=== PATIENT | female | born 1995 | race African-American/Black ===

== ENCOUNTER 2020-10-21 22:58 | Day surgery (SDC) | payer OTHER ==
[2020-10-22] MEDS ORDERED: hydrALAZINE 20 MG/ML VIAL SLOW IVP PRN (00:50)
[2020-10-22 03:06] LABS: Amnisure Test No Membranes Rupture (No Rupture)
[2020-10-22] MEDS ORDERED: Promethazine HCl 25 MG/ML VIAL IM SCH (03:30)
[2020-10-22] MEDS ORDERED: Morphine 4 MG/ML VIAL IM SCH (03:30)
[2020-10-22] MEDS ORDERED: Acetaminophen 500 MG TAB PO SCH (03:45)
== END 2020-10-22 03:45 | disposition home health service (06) ==
LOC: CSHLD/OP 22:58
PROVIDERS: ATTEND Family Medicine
DX: O47.1 False labor at or after 37 completed weeks of gestation (principal); O99.513 Diseases of the respiratory system complicating pregnancy, third trimester; J45.909 Unspecified asthma, uncomplicated; O99.333 Smoking (tobacco) complicating pregnancy, third trimester; F17.210 Nicotine dependence, cigarettes, uncomplicated; O09.33 Supervision of pregnancy with insufficient antenatal care, third trimester; Z3A.39 39 weeks gestation of pregnancy; Z59.0 Homelessness
CPT/HCPCS: 84112

== ENCOUNTER 2021-01-18 14:55 | Emergency (ER) | payer OTHER, MEDICAID ==
[2021-01-18 17:50] LABS: Bilirubin Neg (Negative); Blood, Urine 10 (Negative); Clarity Clear (Clear); Glucose, Urine (Dipstick) Normal (Negative); Ketone, Urine Negative (Negative); Leukocyte 25 (Negative); Nitrite Negative (Negative); Protein, Urine (Dipstick) Negative (Neg-Trace)
[2021-01-18 17:53] LABS: Pregnancy Test - Urine (BHCG) Negative (Negative)
[2021-01-18 17:54] LABS: Pregu Control Background? CLEAR/WHITE (CLR/WHITE); Pregu Control Bar Appear? YES (CONTROL BAR)
[2021-01-18 18:02] LABS: Bacteria/HPF Rare-Few HPF (None Seen); RBC/HPF 0-3 HPF (0-3); WBC/HPF 0-3 HPF (0-3)
== END 2021-01-18 18:34 | disposition home or self-care (01) ==
LOC: CSHERS 14:55
DX: N76.0 Acute vaginitis (principal); B96.89 Other specified bacterial agents as the cause of diseases classified elsewhere; J45.909 Unspecified asthma, uncomplicated; F17.210 Nicotine dependence, cigarettes, uncomplicated
CPT/HCPCS: 81003; 81015; 81025; 87480; 87510; 87660; 99283

== ENCOUNTER 2021-04-04 20:27 | Emergency (ER) | payer OTHER ==
[2021-04-04 21:27] LABS: Bilirubin Neg (Negative); Blood, Urine 10 (Negative); Clarity Clear (Clear); Glucose, Urine (Dipstick) Normal (Negative); Ketone, Urine Negative (Negative); Leukocyte 500 (Negative); Nitrite Negative (Negative); Protein, Urine (Dipstick) 15 mg/dl (Neg-Trace); Specific Gravity, Urine 1.025 (1.002-1.036); Urobilinogen Normal mg/dL (Less than 2)
[2021-04-04 21:29] LABS: Pregnancy Test - Urine (BHCG) Negative (Negative); Pregu Control Background? CLEAR/WHITE (CLR/WHITE); Pregu Control Bar Appear? YES (CONTROL BAR); Specific Gravity 1.025 (1.002-1.036)
[2021-04-04 21:47] LABS: RBC/HPF 0-3 HPF (0-3)
[2021-04-04 21:48] LABS: Bacteria/HPF 1+ HPF (None Seen); Mucous/LPF Few LPF (<2+)
[2021-04-04] MEDS ORDERED: Fluconazole 100 MG TAB PO SCH (22:00)
[2021-04-04] MEDS ORDERED: cefTRIAXone\\ROCEPHIN 1 GM VIAL ONE (22:30)
[2021-04-04] MEDS ORDERED: Sterile Water 10 ML ONE (22:30)
[2021-04-04] MEDS ORDERED: Doxycycline 100 MG CAP PO SCH (23:15)
[2021-04-06 21:24] LABS: Chlamydia by PCR Not Detected (NotDetected); GC by PCR Not Detected (NotDetected)
== END 2021-04-04 23:16 | disposition home or self-care (01) ==
LOC: CSHERS 20:27
DX: N76.0 Acute vaginitis (principal); N39.0 Urinary tract infection, site not specified
CPT/HCPCS: 81003; 81015; 81025; 87086; 87480; 87491; 87510; 87591; 87660; 96372; 99283; J0696

== ENCOUNTER 2021-04-19 23:57 | Emergency (ER) | payer OTHER ==
[2021-04-20] MEDS ORDERED: cefTRIAXone\\ROCEPHIN 500 MG VIAL ONE (00:24)
[2021-04-20] MEDS ORDERED: Lidocaine 1% MPF 2 ML VIAL ONE (00:24)
[2021-04-20] MEDS ORDERED: Azithromycin 250 MG TAB ONE (00:25)
[2021-04-20 01:01] LABS: Bilirubin Neg (Negative); Blood, Urine 10 (Negative); Clarity Slightly Cloudy (Clear); Glucose, Urine (Dipstick) Normal (Negative); Ketone, Urine Negative (Negative); Leukocyte 100 (Negative); Nitrite Negative (Negative); Protein, Urine (Dipstick) Negative (Neg-Trace); Specific Gravity, Urine 1.025 (1.002-1.036); Urobilinogen Normal mg/dL (Less than 2)
[2021-04-20 01:06] LABS: Pregnancy Test - Urine (BHCG) Negative (Negative); Pregu Control Background? CLEAR/WHITE (CLR/WHITE); Pregu Control Bar Appear? YES (CONTROL BAR); Specific Gravity 1.025 (1.002-1.036)
[2021-04-20 01:11] LABS: Bacteria/HPF 2+ HPF (None Seen); Mucous/LPF 3+ LPF (<2+); RBC/HPF 0-3 HPF (0-3); WBC/HPF 0-3 HPF (0-3)
[2021-04-22 20:40] LABS: Chlam.trachomatis by PCR,Urine Not Detected (NotDetected)
== END 2021-04-20 01:23 | disposition home or self-care (01) ==
LOC: CSHERS 23:57
DX: N76.0 Acute vaginitis (principal); B96.89 Other specified bacterial agents as the cause of diseases classified elsewhere; F17.210 Nicotine dependence, cigarettes, uncomplicated
CPT/HCPCS: 81003; 81015; 81025; 87480; 87491; 87510; 87591; 87660; 96372; 99283; J0696

== ENCOUNTER 2021-04-26 21:07 | Emergency (ER) | payer OTHER | END 2021-04-26 21:38 | disposition home or self-care (01) | LOC: CSHERS 21:07 | DX: N89.8 Other specified noninflammatory disorders of vagina (principal); F17.210 Nicotine dependence, cigarettes, uncomplicated | CPT/HCPCS: 99281 ==

== ENCOUNTER 2021-04-29 08:11 | Emergency (ER) | payer OTHER ==
[2021-04-29] MEDS ORDERED: Acetaminophen 325 MG TAB ONE (08:53)
[2021-04-29] MEDS ORDERED: Ketorolac Tromethamine 30 MG/ML VIAL ONE (08:53)
== END 2021-04-29 09:00 | disposition home or self-care (01) ==
LOC: CSHERS 08:11
DX: R51.9 Headache, unspecified (principal); F17.210 Nicotine dependence, cigarettes, uncomplicated
CPT/HCPCS: 96372; 99284; J1885

== ENCOUNTER 2021-05-03 20:37 | Emergency (ER) | payer OTHER | END 2021-05-03 21:35 | disposition home or self-care (01) | LOC: CSHERS 20:37 | DX: M25.531 Pain in right wrist (principal); F17.210 Nicotine dependence, cigarettes, uncomplicated | CPT/HCPCS: 99281 ==

== ENCOUNTER 2021-05-10 20:21 | Emergency (ER) | payer OTHER ==
[2021-05-16 02:56] LABS: Chlamydia by PCR Not Detected (NotDetected); GC by PCR Not Detected (NotDetected)
== END 2021-05-10 23:28 | disposition home or self-care (01) ==
LOC: CSHERS 20:21
DX: N89.8 Other specified noninflammatory disorders of vagina (principal); F17.210 Nicotine dependence, cigarettes, uncomplicated
CPT/HCPCS: 87480; 87491; 87510; 87591; 87660; 99283

== ENCOUNTER 2021-05-12 20:47 | Emergency (ER) | payer OTHER ==
[2021-05-12] MEDS ORDERED: Acetaminophen 500 MG TAB ONE (21:57)
== END 2021-05-12 22:06 | disposition home or self-care (01) ==
LOC: CSHERS 20:47
DX: R42 Dizziness and giddiness (principal); F17.210 Nicotine dependence, cigarettes, uncomplicated
CPT/HCPCS: 99281

== ENCOUNTER 2022-03-28 18:27 | Emergency (ER) | payer SELFPAY ==
[2022-03-28 19:05] LABS: Bilirubin Neg (Negative); Blood, Urine 10 (Negative); Glucose, Urine (Dipstick) Normal (Negative); Ketone, Urine Negative (Negative); Leukocyte 100 (Negative); Nitrite Negative (Negative); Protein, Urine (Dipstick) Negative (Neg-Trace); Urobilinogen Normal mg/dL (Less than 2)
[2022-03-28 19:12] LABS: Clarity Hazy (Clear)
[2022-03-28 22:28] LABS: Pregnancy Test - Urine (BHCG) Negative (Negative); Pregu Control Background? CLEAR/WHITE (CLR/WHITE); Pregu Control Bar Appear? YES (CONTROL BAR)
[2022-03-29 10:26] LABS: Chlamydia by PCR Not Detected (NotDetected); GC by PCR Not Detected (NotDetected)
== END 2022-03-28 21:49 | disposition left against medical advice (07) ==
LOC: CSHERS 18:27
DX: N89.8 Other specified noninflammatory disorders of vagina (principal); F17.210 Nicotine dependence, cigarettes, uncomplicated
CPT/HCPCS: 81025; 87086; 87480; 87491; 87510; 87591; 87660